=== PATIENT | male | born 1940 | race Two or more races ===

== ENCOUNTER 2018-09-11 17:01 | Emergency (ER) | payer OTHER ==
[~2018-09-11] VITALS: Ht 165.1 cm; Wt 96.6 kg
[2018-09-11 18:32] VITALS: BP 186/107
[2018-09-11] MEDS ORDERED: TETANUS-DIPTH-ACEL PERTUSSIS 0.5ML SYRG IM ONE (19:45)
== END 2018-09-11 19:55 | disposition home or self-care (01) ==
LOC: ER 17:01 → EDBD 17:01 → ER 19:55
DX: S00.512A Abrasion of oral cavity, initial encounter (principal); Z88.0 Allergy status to penicillin; W25.XXXA Contact with sharp glass, initial encounter; Y93.89 Activity, other specified; Y92.89 Other specified places as the place of occurrence of the external cause; Y99.8 Other external cause status
CPT/HCPCS: 74176; 90471; 90715

== ENCOUNTER 2019-08-19 20:04 | Emergency (ER) | payer OTHER ==
[~2019-08-19] VITALS: Ht 165.1 cm; Wt 113.4 kg
[2019-08-19 20:43] VITALS: BP 179/90
[2019-08-19] MEDS ORDERED: KETOROLAC TROMETH 60MG/2ML VIAL IM ONE (23:15)
== END 2019-08-19 23:34 | disposition home or self-care (01) ==
LOC: ER 20:06
DX: M11.261 Other chondrocalcinosis, right knee (principal); Z88.0 Allergy status to penicillin
CPT/HCPCS: 73562; 96372; 99283; J1885

== ENCOUNTER 2020-12-29 15:06 | Emergency (ER) | payer OTHER ==
[~2020-12-29] VITALS: Ht 167.6 cm; Wt 83.9 kg
[2020-12-29 20:06] LABS: Basophils # (auto) 0 10 ^3/uL (0-0.2); Basophils % (auto) 0.6 % (0.0-2.0); Eosinophils # (auto) 0.3 10 ^3/uL (0-0.8); Eosinophils % (auto) 3.1 % (0.0-7.0); Hematocrit 42.8 % (41.0-53.0); Hemoglobin 14.3 g/dL (13.5-17.5); Lymphocytes # (auto) 1.9 10 ^3/uL (0.4-5.4); Lymphocytes % (auto) 22.3 % (10.0-50.0); Mean Corpuscular Hemoglobin 30.8 pg (28.0-32.0); Mean Corpuscular Hgb Conc. 33.5 g/dL (32.0-36.0); Mean Corpuscular Volume 92.1 fL (80.0-100.0); Monocytes % (auto) 11.7 % (0.0-12.0); Neutrophils # (auto) 5.2 10 ^3/uL (1.6-8.6); Neutrophils % (auto) 62.3 % (37.0-80.0); Nucleated Red Blood Cells % 0.1 %; Platelet Count (auto) 132 10^3/uL (140-450); Red Blood Cells 4.65 10^6/uL (4.5-5.90); Red Cell Distribution Width 14.2 % (11.8-14.3); White Blood Cell 8.4 10^3/uL (4.4-10.8)
[2020-12-29 20:19] LABS: INR 0.98 (0.9-1.15)
[2020-12-29 20:27] LABS: Albumin 3.7 g/dL (3.4-5.0); Anion Gap 4 (5-15); Blood Urea Nitrogen 34 mg/dL (7-18); Calcium 9.2 mg/dL (8.5-10.1); Carbon Dioxide 26 mmol/L (21-32); Chloride 108 mmol/L (98-107); Glucose 125 mg/dL (74-106); Magnesium 2.6 mg/dL (1.6-2.6); Potassium 4.3 mmol/L (3.5-5.1); Sodium 138 mmol/L (136-145)
[2020-12-29 20:34] LABS: Alanine Aminotransferase 25 U/L (16-61); Alkaline Phosphatase 99 U/L (45-117); Aspartate Aminotransferase 15 U/L (15-37); BUN/Creatinine Ratio 16.7; Bilirubin, Total 0.3 mg/dL (0.2-1.0); GFR African American 41 mL/min; GFR Non-African American 34 mL/min; Total Protein 8.1 g/dL (6.4-8.2)
[2020-12-29 22:02] VITALS: BP 130/75
== END 2020-12-29 23:00 | disposition home or self-care (01) ==
LOC: EDBD 15:06 → ER 15:06
DX: E11.22 Type 2 diabetes mellitus with diabetic chronic kidney disease (principal); I12.9 Hypertensive chronic kidney disease with stage 1 through stage 4 chronic kidney disease, or unspecified chronic kidney disease; N18.9 Chronic kidney disease, unspecified; Z20.822 Contact with and (suspected) exposure to COVID-19
CPT/HCPCS: 36415; 71045; 80053; 83605; 83735; 84484; 85025; 85610; 87426; 93005

== ENCOUNTER 2021-07-09 04:27 | Emergency (ER) | payer OTHER ==
[~2021-07-09] VITALS: Ht 165.1 cm; Wt 99.8 kg
[2021-07-09 05:46] LABS: Basophils # (auto) 0 10 ^3/uL (0-0.2); Basophils % (auto) 0.4 % (0.0-2.0); Eosinophils # (auto) 0.2 10 ^3/uL (0-0.8); Eosinophils % (auto) 2.1 % (0.0-7.0); Hematocrit 37.7 % (41.0-53.0); Hemoglobin 12.7 g/dL (13.5-17.5); Lymphocytes # (auto) 2.2 10 ^3/uL (0.4-5.4); Lymphocytes % (auto) 23.4 % (10.0-50.0); Mean Corpuscular Hemoglobin 30.4 pg (28.0-32.0); Mean Corpuscular Hgb Conc. 33.6 g/dL (32.0-36.0); Mean Corpuscular Volume 90.4 fL (80.0-100.0); Monocytes # (auto) 1.1 10 ^3/uL (0-1.3); Monocytes % (auto) 11.9 % (0.0-12.0); Neutrophils # (auto) 5.7 10 ^3/uL (1.6-8.6); Neutrophils % (auto) 62.2 % (37.0-80.0); Nucleated Red Blood Cells % 0.2 %; Red Blood Cells 4.17 10^6/uL (4.5-5.90); Red Cell Distribution Width 14.3 % (11.8-14.3); White Blood Cell 9.2 10^3/uL (4.4-10.8)
[2021-07-09 05:56] LABS: Albumin 3.5 g/dL (3.4-5.0); Anion Gap 8 (5-15); Blood Urea Nitrogen 28 mg/dL (7-18); Carbon Dioxide 23 mmol/L (21-32); Chloride 109 mmol/L (98-107); Glucose 125 mg/dL (74-106); Potassium 4.6 mmol/L (3.5-5.1); Sodium 140 mmol/L (136-145)
[2021-07-09 05:58] LABS: Alanine Aminotransferase 21 U/L (16-61); Aspartate Aminotransferase 11 U/L (15-37); BUN/Creatinine Ratio 15.4; GFR African American 46 mL/min; GFR Non-African American 38 mL/min
[2021-07-09 06:03] LABS: Alkaline Phosphatase 103 U/L (45-117); Bilirubin, Total 0.4 mg/dL (0.2-1.0); Total Protein 8.2 g/dL (6.4-8.2)
[2021-07-09] MEDS ORDERED: SPIRONOLACTONE 25 MG TAB PO ONE (11:30)
[2021-07-09] MEDS ORDERED: FUROSEMIDE 40 MG/4 ML VIAL IV ONE (11:30)
[2021-07-09] MEDS ORDERED: SODIUM CHLORIDE 0.9% 1,000 ML IV ONE (11:30)
[2021-07-09 14:40] VITALS: BP 122/54
== END 2021-07-09 14:45 | disposition home or self-care (01) ==
LOC: ER 04:27
DX: K12.2 Cellulitis and abscess of mouth (principal); G47.30 Sleep apnea, unspecified; E11.21 Type 2 diabetes mellitus with diabetic nephropathy; R09.89 Other specified symptoms and signs involving the circulatory and respiratory systems; I10 Essential (primary) hypertension; Z90.49 Acquired absence of other specified parts of digestive tract
CPT/HCPCS: 36415; 71045; 80053; 83880; 84443; 84484; 85025; 93005

== ENCOUNTER 2022-01-21 20:39 | Emergency (ER) | payer OTHER ==
[~2022-01-21] VITALS: Ht 165.1 cm; Wt 96.2 kg
[2022-01-21 22:50] LABS: Urine Bacteria FEW /hpf (None Seen); Urine Blood TRACE /uL (Negative); Urine Hyaline Cast FEW /lpf (0 - 2); Urine Specific Gravity 1.013 (1.001-1.035); Urine WBC 6 /hpf (0 - 3)
[2022-01-22 04:30] VITALS: BP 111/50
[2022-01-22 04:49] LABS: Albumin 3.4 g/dL (3.4-5.0); BUN/Creatinine Ratio 15.2; Calcium 9.1 mg/dL (8.5-10.1); Potassium 4.2 mmol/L (3.5-5.1)
[2022-01-22 04:53] LABS: Bilirubin, Total 0.3 mg/dL (0.2-1.0); Total Protein 7.7 g/dL (6.4-8.2)
== END 2022-01-22 04:48 | disposition home or self-care (01) ==
LOC: ER 20:39
DX: G47.00 Insomnia, unspecified (principal); I10 Essential (primary) hypertension; E11.9 Type 2 diabetes mellitus without complications; E78.5 Hyperlipidemia, unspecified; Z90.49 Acquired absence of other specified parts of digestive tract; Z88.0 Allergy status to penicillin
CPT/HCPCS: 36415; 80053; 81001

== ENCOUNTER 2022-04-16 10:23 | Inpatient (IN) | payer OTHER, MEDICAID ==
[~2022-04-16] VITALS: Ht 165.1 cm; Wt 92.5 kg
[~2022-04-16 10:23] MED LIST: ATOR20TA PO; EMPA1TAB PO; FER325T PO; NIFE1TAB31 PO; PANT40TA2 PO
[2022-04-16 13:29] LABS: Urine Bacteria NONE SEEN /hpf (None Seen); Urine Blood 1+ /uL (Negative); Urine Specific Gravity 1.015 (1.001-1.035); Urine WBC 48 /hpf (0 - 3)
[2022-04-16] MEDS ORDERED: SODIUM CHLORIDE 0.9% 500 ML IVB ONE (13:30)
[2022-04-16] MEDS ORDERED: SODIUM CHLORIDE 0.9% 1,000 ML IV ONE (13:30)
[2022-04-16 13:37] LABS: Basophils # (auto) 0 10 ^3/uL (0-0.2); Basophils % (auto) 0.4 % (0.0-2.0); Eosinophils # (auto) 0.1 10 ^3/uL (0-0.8); Eosinophils % (auto) 0.7 % (0.0-7.0); Hemoglobin 7.7 g/dL (13.5-17.5); Lymphocytes # (auto) 1.7 10 ^3/uL (0.4-5.4); Neutrophils # (auto) 5.8 10 ^3/uL (1.6-8.6); Red Cell Distribution Width 19.6 % (11.8-14.3); White Blood Cell 8.3 10^3/uL (4.4-10.8)
[2022-04-16 13:38] LABS: Hematocrit 24.9 % (41.0-53.0); Lymphocytes % (auto) 20.9 % (10.0-50.0); Mean Corpuscular Hemoglobin 23.4 pg (28.0-32.0); Mean Corpuscular Hgb Conc. 31.1 g/dL (32.0-36.0); Mean Corpuscular Volume 75.1 fL (80.0-100.0); Monocytes # (auto) 0.7 10 ^3/uL (0-1.3); Monocytes % (auto) 8.8 % (0.0-12.0); Neutrophils % (auto) 69.2 % (37.0-80.0); Nucleated Red Blood Cells % 0.1 %; Red Blood Cells 3.31 10^6/uL (4.5-5.90)
[2022-04-16 13:42] LABS: Albumin 3.4 g/dL (3.4-5.0); Calcium 9.8 mg/dL (8.5-10.1); Potassium 4.4 mmol/L (3.5-5.1)
[2022-04-16 13:45] LABS: Bilirubin, Total 0.4 mg/dL (0.2-1.0); Total Protein 8.2 g/dL (6.4-8.2)
[2022-04-16] MEDS ORDERED: cefTRIAXone 1GM/50ML D5W 50 ML IV ONE (15:15)
[2022-04-16] MEDS ORDERED: MORPHINE SULFATE INJ 2 MG/ml SYRG IV PRN ×2 (18:00→21:30)
[2022-04-16] MEDS ORDERED: NITROGLYCERIN 0.4 MG SL TAB SL PRN (18:00)
[2022-04-16] MEDS ORDERED: HYDROcodone-ACET 5/325MG TAB PO PRN (21:30)
[2022-04-16] MEDS ORDERED: DOCUSATE SOD 100 MG CAP PO PRN (21:30)
[2022-04-16] MEDS ORDERED: ACETAMINOPHEN 325 MG TAB PO PRN (21:30)
[2022-04-16] MEDS ORDERED: ONDANSETRON HCL 4 MG/2 ML VIAL IV PRN (21:30)
[2022-04-16] MEDS ORDERED: LORazepam 0.5 MG TAB PO PRN (21:30)
[2022-04-16] MEDS ORDERED: PANTOPRAZOLE 40 MG/10 ML VIAL INJ IV ONE (21:30)
[2022-04-16] MEDS ORDERED: hydrALAZINE HCL 20 MG/ML VL IV PRN (21:30)
[2022-04-16 23:31] LABS: INR 1.06 (0.9-1.15); Partial Thromboplastin Time 23.7 sec (23.6-33.0)
[2022-04-16] MEDS: SODIUM CHLORIDE 0.9% 1,000 ML IV SCH (23:51)
[2022-04-17 06:29] LABS: Basophils # (auto) 0 10 ^3/uL (0-0.2); Eosinophils # (auto) 0.1 10 ^3/uL (0-0.8); Lymphocytes # (auto) 1.4 10 ^3/uL (0.4-5.4)
[2022-04-17 06:34] LABS: Basophils % (auto) 0.4 % (0.0-2.0); Eosinophils % (auto) 1.5 % (0.0-7.0); Hematocrit 22.2 % (41.0-53.0); Lymphocytes % (auto) 18.2 % (10.0-50.0); Mean Corpuscular Hemoglobin 23.5 pg (28.0-32.0); Mean Corpuscular Hgb Conc. 31.5 g/dL (32.0-36.0); Mean Corpuscular Volume 74.5 fL (80.0-100.0); Monocytes # (auto) 0.7 10 ^3/uL (0-1.3); Monocytes % (auto) 9.9 % (0.0-12.0); Neutrophils # (auto) 5.2 10 ^3/uL (1.6-8.6); Nucleated Red Blood Cells % 0.1 %; Red Blood Cells 2.99 10^6/uL (4.5-5.90); Red Cell Distribution Width 19.3 % (11.8-14.3); White Blood Cell 7.4 10^3/uL (4.4-10.8)
[2022-04-17 06:36] LABS: Magnesium 2.3 mg/dL (1.6-2.6); Potassium 4.4 mmol/L (3.5-5.1)
[2022-04-17 06:44] LABS: Thyroid Stimulating Hormone 1.78 uIU/mL (0.358-3.74)
[2022-04-17 06:49] LABS: Albumin 2.7 g/dL (3.4-5.0); BUN/Creatinine Ratio 16.8; Bilirubin, Total 0.3 mg/dL (0.2-1.0); CRP High Sensitivity 2.82 mg/dL (< 0.3); Calcium 9.1 mg/dL (8.5-10.1); Phosphorus 3.5 mg/dL (2.5-4.90); Total Protein 7.1 g/dL (6.4-8.2); Uric Acid 6.3 mg/dL (3.5-7.2)
[2022-04-17 08:07] LABS: INR 1.05 (0.9-1.15); Partial Thromboplastin Time 22.8 sec (23.6-33.0)
[2022-04-17] MEDS: PANTOPRAZOLE 40 MG/10 ML VIAL INJ IV SCH ×2 (09:55→22:22)
[2022-04-17 10:35] LABS: Basophils # (auto) 0 10 ^3/uL (0-0.2); Eosinophils # (auto) 0.1 10 ^3/uL (0-0.8); Mean Corpuscular Volume 75.4 fL (80.0-100.0); Monocytes # (auto) 0.8 10 ^3/uL (0-1.3); Nucleated Red Blood Cells % 0.1 %; White Blood Cell 7.7 10^3/uL (4.4-10.8)
[2022-04-17 10:37] LABS: Basophils % (auto) 0.3 % (0.0-2.0); Eosinophils % (auto) 1.3 % (0.0-7.0); Hematocrit 22.3 % (41.0-53.0); Lymphocytes # (auto) 1.7 10 ^3/uL (0.4-5.4); Lymphocytes % (auto) 21.9 % (10.0-50.0); Mean Corpuscular Hemoglobin 23.4 pg (28.0-32.0); Monocytes % (auto) 10.7 % (0.0-12.0); Neutrophils # (auto) 5.1 10 ^3/uL (1.6-8.6); Neutrophils % (auto) 65.8 % (37.0-80.0); Red Blood Cells 2.96 10^6/uL (4.5-5.90); Red Cell Distribution Width 19.2 % (11.8-14.3)
[2022-04-17 10:50] LABS: Hemoglobin 6.9 g/dL (13.5-17.5)
[2022-04-17] MEDS ORDERED: DEXTROSE (50%) 50ML SYRG IV PRN (11:30)
[2022-04-17] MEDS: ACCU-CHEK COMFORT CURVE STRIP VI SCH ×3 (13:12→22:15)
[2022-04-17] MEDS: InsuLIN REG 1unit/0.01ml Soln (100units/ml) SC SCH ×3 (13:12→22:00)
[2022-04-17] MEDS ORDERED: GOLYTELY 4L KIT PO ONE ×2 (14:45→15:00)
[2022-04-17] MEDS: SODIUM CHLORIDE 0.9% 1,000 ML IV SCH (18:08)
[2022-04-17 22:35] VITALS: BP 136/51
[2022-04-17 23:05] VITALS: BP 136/51
[2022-04-17 23:20] VITALS: BP 117/54
[2022-04-18 01:55] VITALS: BP 134/56
[2022-04-18 02:55] VITALS: BP 128/52
[2022-04-18 05:00] VITALS: BP 140/77
[2022-04-18 06:16] LABS: Eosinophils # (auto) 0.2 10 ^3/uL (0-0.8); Hemoglobin 9.2 g/dL (13.5-17.5); Mean Corpuscular Hemoglobin 24.4 pg (28.0-32.0); Mean Corpuscular Hgb Conc. 32.4 g/dL (32.0-36.0); Mean Corpuscular Volume 75.5 fL (80.0-100.0); Monocytes # (auto) 1.1 10 ^3/uL (0-1.3)
[2022-04-18 06:19] LABS: Basophils # (auto) 0.1 10 ^3/uL (0-0.2); Basophils % (auto) 0.6 % (0.0-2.0); Eosinophils % (auto) 2.4 % (0.0-7.0); Hematocrit 28.3 % (41.0-53.0); Lymphocytes # (auto) 2.1 10 ^3/uL (0.4-5.4); Monocytes % (auto) 12.9 % (0.0-12.0); Neutrophils # (auto) 4.9 10 ^3/uL (1.6-8.6); Neutrophils % (auto) 59.1 % (37.0-80.0); Nucleated Red Blood Cells % 0.1 %; Red Blood Cells 3.75 10^6/uL (4.5-5.90); White Blood Cell 8.3 10^3/uL (4.4-10.8)
[2022-04-18 06:25] LABS: Calcium 9.6 mg/dL (8.5-10.1); Potassium 4.4 mmol/L (3.5-5.1)
[2022-04-18 06:27] LABS: BUN/Creatinine Ratio 11.6
[2022-04-18] MEDS: ACCU-CHEK COMFORT CURVE STRIP VI SCH ×3 (06:36→17:30)
[2022-04-18] MEDS: InsuLIN REG 1unit/0.01ml Soln (100units/ml) SC SCH ×3 (06:37→17:30)
[2022-04-18] MEDS ORDERED: LIDOCAINE VISCOUS 2% 15ML UD ONE (08:24)
[2022-04-18] MEDS ORDERED: diphenhdrAMINE HCL 50 MG/1 ML VL ONE (08:24)
[2022-04-18 09:00] VITALS: BP 138/58
[2022-04-18] MEDS: PANTOPRAZOLE 40 MG/10 ML VIAL INJ IV SCH (09:44)
[2022-04-18] MEDS ORDERED: NIFEdipine ER 30 MG TAB PO SCH (10:00)
[2022-04-18] MEDS ORDERED: levoFLOXacin 250MG 50 ML IV SCH (10:00)
[2022-04-18] MEDS: SODIUM CHLORIDE 0.9% 1,000 ML IV SCH (10:00)
[2022-04-18] MEDS ORDERED: ATORVASTATIN 20 MG TAB PO SCH (10:00)
[2022-04-18] MEDS: MIDAZOLAM HCL 5 MG/ML-1ML VIAL ONE ×2 (12:30→12:42)
[2022-04-18] MEDS: fentaNYL CITRATE 100 MCG/2 ML VL ONE ×2 (12:30→12:42)
[2022-04-18 13:30] VITALS: BP 121/77
[2022-04-19] MEDS ORDERED: PANTOPRAZOLE 40 MG TAB PO SCH (10:00)
== END 2022-04-18 18:19 | disposition home health service (06) | DRG 375 ==
LOC: ER 10:23 → TELE 17:47 → TELE-EAST 04-17 19:45 → TELE 04-18 16:22 → TELE-EAST 04-18 16:32
PROVIDERS: ADMIT Hospitalist; ATTEND Internal Medicine
PROC: 30233N1 Transfusion of Nonautologous Red Blood Cells into Peripheral Vein, Percutaneous Approach (ICD-10-PCS; principal; 2022-04-17)
PROC: 0DBP8ZX Excision of Rectum, Via Natural or Artificial Opening Endoscopic, Diagnostic (ICD-10-PCS; 2022-04-18)
PROC: 0DB68ZX Excision of Stomach, Via Natural or Artificial Opening Endoscopic, Diagnostic (ICD-10-PCS; 2022-04-18 12:25)
DX: C18.9 Malignant neoplasm of colon, unspecified (principal); N39.0 Urinary tract infection, site not specified; N17.9 Acute kidney failure, unspecified; I13.0 Hypertensive heart and chronic kidney disease with heart failure and stage 1 through stage 4 chronic kidney disease, or unspecified chronic kidney disease; D64.9 Anemia, unspecified; K29.70 Gastritis, unspecified, without bleeding; K29.80 Duodenitis without bleeding; E11.22 Type 2 diabetes mellitus with diabetic chronic kidney disease; E66.9 Obesity, unspecified; E78.5 Hyperlipidemia, unspecified; K62.1 Rectal polyp; N18.31 Chronic kidney disease, stage 3a; N40.0 Benign prostatic hyperplasia without lower urinary tract symptoms; Z77.22 Contact with and (suspected) exposure to environmental tobacco smoke (acute) (chronic); I50.9 Heart failure, unspecified; K21.9 Gastro-esophageal reflux disease without esophagitis; Z20.822 Contact with and (suspected) exposure to COVID-19; Z79.899 Other long term (current) drug therapy; Z68.33 Body mass index [BMI] 33.0-33.9, adult; Z88.0 Allergy status to penicillin; Z86.718 Personal history of other venous thrombosis and embolism; Z90.49 Acquired absence of other specified parts of digestive tract
CPT/HCPCS: 36415; 43239; 45380; 70450; 71046; 80048; 80053; 80061; 81001; 82550; 82728; 82962; 83036; 83615; 83690; 83735; 83880; 84100; 84439; 84443; 84484; 84550; 85025; 85379; 85610; 85652; 85730; 86141; 86850; 86900; 86901; 86920; 87040; 87086; 87088; 87186; 93005; 96361; 96365; C9113; G0378; J0696; J2250